=== PATIENT | male | born 1940 | race Caucasian/White ===

== ENCOUNTER 2017-04-01 08:36 | Inpatient (IN) | payer BC, MEDICARE ==
[~2017-04-01] VITALS: Ht 167.6 cm; Wt 73.0 kg
[2017-04-01 10:05] LABS: BASOPHILS % 0.4 % (0.0-2.0); EOSINOPHILS % 2.7 % (0.0-5.0); HEMATOCRIT. 39.7 % (42.0-52.0); HEMOGLOBIN. 13.2 g/dL (14.0-18.0); LYMPHOCYTES % 52.1 % (20.0-50.0); MEAN CORPUSCULAR HEMOGLOBIN 32.5 pg (28.0-32.0); MEAN CORPUSCULAR VOLUME 97.4 fL (80.0-94.0); MEAN PLATELET VOLUME 7.4 fl (7.4-10.4); MONOCYTES % 5.8 % (2.0-8.0); PLATELET 224 x1000/uL (130-400); RED BLOOD CELL COUNT 4.07 mill/uL (4.7-6.1); RED CELL DISTRIBUTION WIDTH 13.1 % (11.6-14.6)
[2017-04-01 10:09] LABS: PROTHROMBIN TIME 10.5 sec (9.4-11.6)
[2017-04-01] MEDS: LACTATED RINGERS 1,000 ML IV SCH ×2 (10:40→22:12)
[2017-04-01] MEDS ORDERED: FENTANYL CITRATE/PF 50MCG/ML 2ML VIAL ONE (11:22)
[2017-04-01] MEDS ORDERED: PROPOFOL 200MG/20ML VIAL IV ONE (11:25)
[2017-04-01] MEDS ORDERED: METOCLOPRAMIDE HCL 10MG/2ML VIAL ONE (11:25)
[2017-04-01] MEDS ORDERED: LIDOCAINE HCL 1% 20ML VIAL (Pyxis) INJ ONE (11:25)
[2017-04-01] MEDS ORDERED: ONDANSETRON HCL 4MG/2ML VIAL ONE (11:25)
[2017-04-01] MEDS ORDERED: GENTAMICIN SULF 40MG/ML 2ML VIAL ONE (12:16)
[2017-04-01] MEDS ORDERED: CEFAZOLIN SODIUM 1000MG/VIAL ONE (12:16)
[2017-04-01] MEDS ORDERED: EPHEDRINE SULFATE 50MG/ML VIAL ONE (12:16)
[2017-04-01] MEDS ORDERED: CIPR-263 PO (12:47)
[2017-04-01] MEDS ORDERED: DOXA8TAB81 PO (12:47)
[2017-04-01] MEDS ORDERED: DUTA0.5C2 PO (12:47)
[2017-04-01] MEDS ORDERED: CYAN100053 PO (12:47)
[2017-04-01] MEDS ORDERED: VITA400T7 PO (12:47)
[2017-04-01] MEDS ORDERED: ATOR10TA69 PO (12:47)
[2017-04-01] MEDS ORDERED: ASPI-1159 PO (12:47)
[2017-04-01] MEDS ORDERED: MULT-1234 PO (12:47)
[2017-04-01] MEDS ORDERED: LOSA25TA12 PO (12:47)
[2017-04-01] MEDS ORDERED: AMLO2.5T45 PO (12:47)
[2017-04-01] MEDS ORDERED: METF500T4 PO (12:47)
[2017-04-01] MEDS ORDERED: FENTANYL CITRATE/PF 50MCG/ML 2ML VIAL IV PRN (13:00)
[2017-04-01] MEDS ORDERED: CEFAZOLIN SODIUM 1000MG/VIAL IV SCH (14:00)
[2017-04-01 19:50] VITALS: BP 112/55
[2017-04-01 20:00] VITALS: BP 112/55
[2017-04-01 20:14] LABS: CARBON DIOXIDE 28 mEq/L (21-32); CHLORIDE 105 mEq/L (98-107)
[2017-04-01 20:19] LABS: HEMATOCRIT 34.5 % (42.0-52.0); HEMOGLOBIN 11.6 g/dL (14.0-18.0); MEAN CORPUSCULAR HEMOGLOBIN 32.7 pg (28.0-32.0); MEAN CORPUSCULAR VOLUME 97.2 fL (80.0-94.0); PLATELET 194 x1000/uL (130-400); RED BLOOD CELL COUNT 3.55 mill/uL (4.7-6.1); RED CELL DISTRIBUTION WIDTH 13.2 % (11.6-14.6)
[2017-04-01] MEDS: CEFAZOLIN 1000MG PREMIX 50 ML IV SCH (22:04)
[2017-04-02] MEDS: LACTATED RINGERS 1,000 ML IV SCH (02:05)
[2017-04-02 04:38] VITALS: BP 99/50
[2017-04-02 04:39] VITALS: BP 103/55
[2017-04-02] MEDS: CEFAZOLIN 1000MG PREMIX 50 ML IV SCH (05:28)
[2017-04-02] MEDS ORDERED: METFORMIN HCL 500MG TABLET PO SCH (07:50)
[2017-04-02 08:00] VITALS: BP 111/62
[2017-04-02] MEDS ORDERED: AMLODIPINE 5MG TABLET PO SCH (09:00)
[2017-04-02] MEDS ORDERED: LOSARTAN POTASSIUM 25 MG TABLET PO SCH (09:00)
[2017-04-02 10:38] VITALS: BP 105/64
== END 2017-04-02 11:20 | disposition home or self-care (01) | DRG 714 ==
LOC: OR 08:36 → 6WST 17:50
PROVIDERS: ADMIT Specialist; ATTEND Specialist
PROC: 0VT08ZZ Resection of Prostate, Via Natural or Artificial Opening Endoscopic (ICD-10-PCS; principal; 2017-04-01 11:30)
DX: N40.1 Benign prostatic hyperplasia with lower urinary tract symptoms (principal); R31.0 Gross hematuria; I10 Essential (primary) hypertension; N32.0 Bladder-neck obstruction; M54.30 Sciatica, unspecified side; R33.8 Other retention of urine; E78.5 Hyperlipidemia, unspecified; Z72.0 Tobacco use; Z82.49 Family history of ischemic heart disease and other diseases of the circulatory system; Z83.3 Family history of diabetes mellitus
CPT/HCPCS: 36415; 80048; 82962; 85025; 85027; 85610; 85730; J0171; J0690; J1580; J2405; J2704; J2765; J3010; J3490; J7120